=== PATIENT | female | born 1940 | race Caucasian/White ===

== ENCOUNTER → 2025-01-23 | Outpatient (CLI) | payer MEDICARE, BC, SELFPAY ==
[2025-01-23 11:07] LABS: Glucose Estimated Average 143 mg/dL (80-131); Hemoglobin A1C 6.6 % Hgb (4.8-6.0)
[2025-01-23 11:21] LABS: Basophils # (Auto) 0.1 Thou/mm3 (0.0-0.2); Basophils % (Auto) 1 % (0-2.5); Eosinophils # (Auto) 0.2 Thou/mm3 (0.0-0.5); Eosinophils % (Auto) 1 % (0-10); Hematocrit 45.4 % (36.0-46.0); Hemoglobin 14.8 g/dL (12.0-16.0); Immature Granulocytes % (Auto) 0 % (0-0); Immature Granulocytes Auto 0.04 Thou/mm3 (0.00-0.00); Lymphocytes # (Auto) 15.5 Thou/mm3 (1.0-4.8); Lymphocytes % (Auto) 70 % (10-50); Mean Corpuscular HGB Conc 32.6 g/dl (31.0-37.0); Mean Corpuscular Volume 95 fL (80-100); Monocytes # (Auto) 0.7 Thou/mm3 (0.0-0.8); Monocytes % (Auto) 3 % (0-12); Neutrophils # (Auto) 5.7 Thou/mm3 (1.8-7.7); Neutrophils % (Auto) 26 % (37-80); Nucleated Red Blood Cell % 0 /100 WBC (0); Platelet Count 233 Thou/mm3 (140-440); RDW Standard Deviation 46.2 fL (36.4-46.3); Red Blood Count 4.77 Miln/mm3 (4.00-5.20); White Blood Count 22.2 Thou/mm3 (3.6-11.0)
[2025-01-23 11:42] LABS: Alanine Aminotransferase 12 U/L (10-49); Albumin, Serum 4.1 gm/dL (3.4-4.8); Alkaline Phosphatase 85 U/L (46-116); Anion Gap 9 (7-16); Aspartate Amino Transferase 17 U/L (0-34); BUN/Creatinine Ratio 19 Ratio (12-20); Bilirubin,Total 0.9 mg/dL (0.3-1.2); Blood Urea Nitrogen 17 mg/dL (9-23); Calcium 9.1 mg/dL (8.3-10.6); Calcium (Corrected) 9.1 mg/dL (8.5-10.1); Carbon Dioxide 32.8 mMol/L (20.0-31.0); Chloride 101 mMol/L (98-107); Cholesterol 149 mg/dL (132-200); Creatinine (Component) 0.9 mg/dL (0.6-1.3); Globulin 2.1 gm/dL (2.3-3.5); Glucose 187 mg/dL (74-106); HDL Cholesterol 49 mg/dL (40-60); LDL Cholesterol,Calculated 73 mg/dL (0-130); Osmolality,Calculated 291 (275-295); Potassium 3.3 mMol/L (3.4-5.1); Sodium 143 mMol/L (136-145); Thyroid Stimulating Hormone 0.38 uIU/mL (0.55-4.78); Total Protein 6.2 gm/dL (5.7-8.2); Triglycerides 136 mg/dL (30-150); eGFR > 60 See Note
[2025-01-23 14:00] LABS: Collection Type, Urine Clean Catch
[2025-01-23 15:04] LABS: Bacteria,Urine 1+; Bilirubin,Urine Negative (Negative); Blood,Urine Negative (Negative); Clarity,Urine Turbid (Clear/Hazy); Color,Urine Yellow (Lt Yel-Yel); Glucose, Urine Negative (Negative); Ketones,Urine Negative (Negative); Leukocyte Esterase,Urine Positive (Negative); Nitrite,Urine Negative (Negative); Protein,Urine 1+ (Neg - Trace); RBC,Urine 3 /hpf (0-3); Specific Gravity,Urine 1.026 (1.001-1.035); Squamous Epithelial Cell,Urine 23 /hpf (0-5); Urobilinogen,Urine Negative mg/dL (0.0-1.0); WBC,Urine 27 /hpf (0-5)
[2025-01-23 15:10] LABS: Creatinine MALB Rnd Ur 177 mg/dL (30-125); Microalbumin Creat Ratio 13 mg/gCrea (<30); Microalbumin, Random Urine 23 mg/L (0-300)
== END | disposition home or self-care (01) ==
LOC: COPL 09:34
PROVIDERS: PCP Internal Medicine; Referring Provider Internal Medicine Cardiovascular Disease; Visit Provider Internal Medicine Cardiovascular Disease
DX: E78.5 Hyperlipidemia, unspecified (principal); I10 Essential (primary) hypertension; E11.9 Type 2 diabetes mellitus without complications; E03.9 Hypothyroidism, unspecified
CPT/HCPCS: 36415; 80053; 80061; 81001; 82043; 82570; 83036; 84443; 85025

== ENCOUNTER → 2025-04-04 | Outpatient (BNVA) | payer MEDICARE, BC, SELFPAY | END | disposition home or self-care (01) | PROVIDERS: PCP Internal Medicine; Referring Provider Internal Medicine; Visit Provider Urology | DX: R35.0 Frequency of micturition (principal); Z87.440 Personal history of urinary (tract) infections; E11.9 Type 2 diabetes mellitus without complications; F32.9 Major depressive disorder, single episode, unspecified; I10 Essential (primary) hypertension; E03.9 Hypothyroidism, unspecified; E78.5 Hyperlipidemia, unspecified; C91.12 Chronic lymphocytic leukemia of B-cell type in relapse; K21.9 Gastro-esophageal reflux disease without esophagitis | CPT/HCPCS: 51701; 81003; 99203; 99212; G0463 ==

== ENCOUNTER 2025-05-12 16:19 | Emergency (ER) | payer MEDICARE, BC, SELFPAY ==
[2025-05-12] VITALS (8 sets, daily range): BP systolic 151–192; BP diastolic 63–85; PULSE 59–68; RESP 14–18; TEMP 36.4; O2SAT 92–98; BMI 34.3
--- NOTE | 2025-05-12 16:27 | EKG_ITS ---
[facility] Test Date: 2025-05-12 Pat Name: SHAYY KWON Department: Room: - Gender: Female [employer]: : 1940 Requested By: ED Temporary Provider Order Number: [id number] Reading MD: ED Temporary Provider Measurements Intervals [place] Rate: 63 P: 75 ID: [id number] QRS: 12 QRSD: 89 T: 8 QT: 440 QTc: 452 Interpretive Statements SINUS RHYTHM WITH OCCASIONAL VENTRICULAR PREMATURE COMPLEXES POSSIBLE ANTERIOR MYOCARDIAL INFARCTION , OF INDETERMINATE AGE [30 ms Q WAVE IN V3/V4, OR R < 0.2 mV IN V4] Compared to ECG 08/27/2023 07:31:09 Ventricular premature complex(es) now present Myocardial infarct finding now present /store/S0/[id number].pdf
--- NOTE | 2025-05-12 17:38 | PD.EDSOB ---
ED SOB =RME/HPI General Chief Complaint: Chest Pain Stated Complaint: CHEST PAIN Time Seen by Provider: 05/12/25 18:01 Arrival date/time: 05/12/25 16:19 Limitations: no limitations RME / HPI RME / HPI Narrative: 84 year old female with history of hypertension, diabetes, hypothyroidism, CLL presents to the ED BIBA from home for evaluation of shortness of breath today. Per , patient had stated feeling someone was sitting on her chest accompanied by feeling very faint. states he sat the patient down on a chair and shortly after began to complain of headache, neck pain, right sided chest pain and right upper abdominal pain. While in the ED, described the pain as soreness in sensation rating as moderate. Denies fevers, chills, sweats, cough, vomiting, diarrhea, constipation, or urinary symptoms. Related Data Home Medications ?Medication ?Instructions ?Recorded ?Confirmed atenolol 50 mg tablet 100 mg PO BID 02/11/18 04/04/25 omeprazole 40 mg capsule,delayed 40 mg PO QDAY 02/11/18 04/04/25 release atorvastatin 10 mg tablet 10 mg PO HS 07/22/21 04/04/25 glipizide 5 mg tablet 1 tab PO DAILY 05/27/22 04/04/25 amlodipine 5 mg tablet 5 mg PO BID 03/07/23 04/04/25 levothyroxine 75 mcg tablet 75 mcg PO QDAY 03/07/23 04/04/25 memantine 10 mg tablet 10 mg PO QDAY 03/07/23 04/04/25 sertraline 50 mg tablet 50 mg PO DAILY 03/07/23 04/04/25 desvenlafaxine 100 mg 100 mg PO QDAY 03/28/23 04/04/25 tablet,extended release 24 hr ascorbic acid (vitamin C) 25 mg mg PO DAILY 07/25/23 04/04/25 tablet terconazole 0.4 % vaginal cream 1 appful vaginal QHS 04/04/25 04/04/25 Allergies Allergy/AdvReac Type Severity Reaction Status Date / Time morphine Allergy Severe Hallucinati Verified 04/04/25 09:47 ng hydrochlorothiazide Allergy Unknown THYROID Verified 04/04/25 09:47 SWELLING meperidine Allergy Unknown HALLUCINATI Verified 04/04/25 09:47 ONS triamterene Allergy Unknown THYROID Verified 04/04/25 09:47 SWELLING Review of Systems Review of Systems Systems Reviewed: All systems reviewed, normal except as documented Past Medical History Past Medical History CARDIAC: Positive Cardiac Disorders and Hypertension RESPIRATORY: Positive Asthma, Bronchitis and Pneumonia GASTROINTESTINAL: Positive Gastrointestinal Disorders, Gastroesophageal Reflux Disease and Obesity REPRODUCTIVE: Positive Previous Pregnancies MUSCULOSKELETAL: Positive Musculoskeletal Disorders, Arthritis, Carpal Tunnel Syndrome and Fractures ENT: Positive Cataracts ENDOCRINE: Positive Endocrine Disorders, Diabetes Mellitus Type 2 and Hypothyroidism HEMATOLOGIC: Positive Leukemia PSYCHO/SOCIAL: Positive Depression and Anxiety OTHER HISTORY: Positive Chicken Pox, Measles and Mumps Family History FAMILY HISTORY: Positive Family Cancer; Negative Family Psychiatric Problems, Family Respiratory Disorders, Family Cardiac Disorders, Family Gastrointestinal Problems, Family Surgery or Family Anesthesia Reaction Surgical History SURGICAL: Positive Eye Surgery, Tonsillectomy, Adenoidectomy, Abdominal Surgery, Bowel Surgery, Joint Replacement and Hysterectomy; Negative Cardiac Surgery, Open Heart Surgery, Coronary Artery Bypass Graft, Valve Replacement, Vascular Surgery, Coronary Stent, Cardiac Catheterization, Pacemaker, Angiogram, Auto Implanted Cardiovert Defib, Carotid Endarterectomy, Endocrine Surgery, Thyroidectomy, Ear Surgery, Tympanostomy Tube, Nose Surgery, Oral Surgery, Corneal Transplant, Throat Surgery, Tracheostomy, Gastrostomy, Nephrectomy, Transurethral Resection, Amputation, Open Reduction Internal Fixation, Arthroscopy, Neurologic Surgery, Brain Shunt, Mastectomy, Lumpectomy, Tubal Ligation or Section Social History SMOKING STATUS: Never smoker SECOND HAND EXPOSURE: No SUBSTANCE USE: does not use ED Exam General Limitations: Present no limitations General appearance: Present alert and in no apparent distress Head Head exam: Present atraumatic, normocephalic and normal inspection Eye Eye exam: Present normal appearance, PERRL and EOMI ENT ENT exam: Present normal exam, normal oropharynx and mucous membranes moist Neck Neck exam: Present normal inspection, full ROM and trachea midline Chest Chest inspection: Present normal inspection and symmetric chest wall rise Respiratory Respiratory exam: Present normal lung sounds bilaterally Cardiovascular Cardiovascular exam: Present regular rate, normal rhythm and normal heart sounds Abdominal Exam Abdominal exam: Present soft, tenderness (RUQ and epigastric regions) and normal bowel sounds Extremities Exam Extremities exam: Present normal inspection and full ROM Back Exam Back exam: Present normal inspection and full ROM Neurological Exam Neurological exam: Present alert, oriented X3 and CN II-XII intact Psychiatric Psychiatric exam: Present normal affect and normal mood Skin Skin exam: Present warm, dry, intact and normal color Course Quality Measures none Orders Category Date Time Status CT Screening NOW Care 05/12/25 17:48 Active EKG (ED ONLY) *Do not use* NOW Care 05/12/25 16:[address] abdomen pelvis w con Stat Exams 05/12/25 17:47 Ordered CXRP [XR chest 1V portable] Stat Exams 05/12/25 17:47 Ordered EKG (ED Only) Stat Exams 05/12/25 16:27 Ordered EKG (ED Only) Urgent Exams 05/12/25 16:27 Draft US abdomen limited Stat Exams 05/12/25 17:47 Ordered BNP [B-Type Natriuretic Peptide] Stat Lab 05/12/25 17:50 Completed CBC [CBC] Stat Lab 05/12/25 17:50 Completed CMP [Comprehensive Metabolic Panel] Stat Lab 05/12/25 17:50 Completed Lipase Stat Lab 05/12/25 17:50 Completed Path Review Blood Smear Stat Lab 05/12/25 17:50 Completed Troponin I Stat Lab 05/12/25 17:50 Completed UA, C/S IF [Urinalysis, C/S if Indicated] Stat Lab 05/12/25 17:54 Completed Ondansetron Inj [Zofran Inj] Med 05/12/25 17:47 Active 4 mg IVP Q6H PRN fentaNYL INJ [Sublimaze Inj] Med 05/12/25 17:47 Discontinued 100 mcg IVP X1 ONE Vital Signs Vital signs: Vital Signs Temperature 97.6 F 05/12/25 18:23 Pulse Rate 63 05/12/25 18:23 Respiratory Rate 18 05/12/25 18:23 Blood Pressure 155/85 H 05/12/25 18:23 Pulse Oximetry (%) 96 05/12/25 18:23 Oxygen Delivery Method Room Air 05/12/25 18:23 Pulse ox is 96% on room air which is adequate. Shortness of Breath / Dyspnea MDM Narrative MDM Narrative:: Laureen Crump am scribing for and in the presence of Dr. Butt. Assessment: Abdominal pain, with localized epigastric discomfort, most likely due to CBD stone, r/o acute coronary syndrome due to possible atypical presentation. Plan: CT abdomen and pelvis, US abdomen,cardiac workup, labs, pain management and MRCP if indicated based on initial imaging results and labs. 1800: Patient signed out to Dr. Ruffin pending labs and imaging. Patient data External records reviewed:: [facility] previous records (I reviewed ED visit on 03/24/2024 ) and EMS form Clinical information provided by:: patient and EMS Social determinants that could affect healthcare access:: none Patient has the following chronic illnesses:: hypertension, diabetes, hypothyroidism, CLL How is presenting disease/condition affected by chronic disease/condition?: exacerbated by Evaluation data The following diagnostics were reviewed and interpreted by me:: lab results and EKG tracing(s) (05/12/2025 NSR, rate 64, normal QT, no ischemia, no axis deviation ) Lab and/or radiology exams considered but not ordered:: None Interpretation Summary: As noted above Medications / Prescriptions Medications or Prescriptions considered but not ordered:: None Medication administrations:: Medication Administration History Ondansetron HCl (Ondansetron Inj 2 Mg/Ml Inj 2 Ml) 4 mg IVP Q6H PRN; Protocol PRN Reason: NAUSEA OR VOMITING Stop: 06/11/25 17:46 Last Admin: 05/12/25 18:09 Dose: 4 mg Documented By: JOSE Discontinued Medications Fentanyl Citrate (Fentanyl Cit Inj 50 Mcg/Ml Amp 2ml) 100 mcg IVP X1 ONE Stop: 05/12/25 17:48 Last Admin: 05/12/25 18:12 Dose: 100 mcg Documented By: JOSE See above Consultations Consultation(s) initiated? (list below): No Diagnosis Shortness of Breath Differential Diagnosis: acute exacerbation of chronic obstructive airways disease, congestive heart failure, community acquired pneumonia and other (Cholelithiasis, CBD stone, cholecystitis ) Most likely diagnosis given after review of the tests above:: Abdominal pain Admission Indicated Admission indicated?: not indicated Explain why admission is indicated or not indicated:: Signed out to Dr. Ruffin pending final disposition Admission Request Was there a request for admission?: No Disposition Plan Disposition Plan: other (specify) (Signed out to Dr. Ruffin) Discharge Plan Prescriptions/Referrals Prescriptions/Med Rec: No Action desvenlafaxine 100 mg tablet extended release 24 hr 100 mg PO QDAY terconazole 0.4 % cream 1 appful vaginal QHS atorvastatin 10 mg tablet 10 mg PO HS Patient Comments: TAKE 1 TABLET BY MOUTH EVERYDAY AT BEDTIME omeprazole 40 mg Capsule,Delayed Release(Dr/Ec) 40 mg PO QDAY atenolol 50 mg Tablet 100 mg PO BID Rx Instructions: TAKE 2 TABS DAILY glipizide 5 mg tablet 1 tab PO DAILY Patient Comments: TAKE 1 TABLET BY MOUTH TWICE A DAY sertraline 50 mg tablet 50 mg PO DAILY amlodipine 5 mg tablet 5 mg PO BID levothyroxine 75 mcg tablet 75 mcg PO QDAY Patient Comments: TAKE 1 TABLET BY MOUTH EVERY DAY memantine 10 mg tablet 10 mg PO QDAY Patient Comments: TAKE 1 TABLET BY MOUTH EVERY DAY ascorbic acid (vitamin C) 25 mg Tablet PO DAILY Referrals: No Primary/Family,Physician [Primary Care Provider] - In 1 week Patient/Caregiver Discharge Instructions Print Language: [place] Citizen
--- NOTE | 2025-05-12 17:47 | XR_ITS ---
Examination: CT abdomen with intravenous contrast CT pelvis with intravenous contrast 2-D coronal reconstructions 2-D sagittal reconstructions Date and time of exam:May 12, 2025 at 1957 hours Comparison March 06, 2023 INDICATIONS: Epigastric pain abdominal pain this week, enlarged common bile duct 11 mm on hepatic sonogram today. CTDI: vol (mGy) 14 DLP: (mGycm) 738 Technique: Multiple axial sections of the abdomen and pelvis have been obtained. 64 slice high-resolution scanner used. 3 mm axial sections have been obtained, post intravenous injection of 60 cc Isovue 370 2-D sagittal, coronal reconstructions obtained. Low dose protocols were performed. One or more of the following dose reduction techniques were used; automated exposure control, adjustment of the mA and/or KV according to patient size, use of iterative reconstruction technique. Findings: Pneumobilia Absent gallbladder Common hepatic duct 26 mm, common bile duct 15 mm No definite stones No pancreatitis 14 mm low-density mass lateral margin left kidney Perinephric stranding Aorta normal size No bowel obstruction Colonic diverticulosis, no diverticulitis Intact urinary bladder Absent uterus Prominent osteopenia IMPRESSION: Significant extrahepatic biliary tract dilatation MRCP follow-up would be preferable in excluding common bile duct stones
--- NOTE | 2025-05-12 17:47 | XR_ITS ---
Examination: AP chest single view Technique one AP portable sitting chest single view Date and time: May 12, 2025 1857 hours INDICATIONS: Chest pain today FINDINGS: No significant cardiac enlargement. No pneumonia or pulmonary edema. Prominent osteopenia. IMPRESSION: No pneumonia or pulmonary edema
--- NOTE | 2025-05-12 17:47 | XR_ITS ---
Examination: Abdomen sonogram, Limited Date and time of exam: May 12, 2025 1823 hours INDICATIONS: Right upper abdominal pain nausea vomiting beginning several months ago Technique: Real-time cheatham scale transabdominal sonographic images of the upper abdomen obtained. Findings: Absent gallbladder Common bile duct enlarged 11 mm No definite common bile duct stones Pancreas obscured by bowel gas Liver 14.6 cm no liver lesions Normal hepatopedal portal venous and Patent IVC IMPRESSION: Enlarged common bile duct 11 mm although no definite stones If biliary colic is a clinical consideration, recommend MRCP follow-up
[2025-05-12 17:59] LABS: Collection Type, Urine Clean Catch
[2025-05-12 18:02] LABS: Basophils # (Auto) 0.1 Thou/mm3 (0.0-0.2); Basophils % (Auto) 0 % (0-2.5); Eosinophils # (Auto) 0.1 Thou/mm3 (0.0-0.5); Eosinophils % (Auto) 1 % (0-10); Hematocrit 42.5 % (36.0-46.0); Hemoglobin 14.5 g/dL (12.0-16.0); Immature Granulocytes % (Auto) 0 % (0-0); Immature Granulocytes Auto 0.06 Thou/mm3 (0.00-0.00); Lymphocytes # (Auto) 18.3 Thou/mm3 (1.0-4.8); Lymphocytes % (Auto) 76 % (10-50); Mean Corpuscular HGB Conc 34.1 g/dl (31.0-37.0); Mean Corpuscular Hemoglobin 31.5 pg (25.0-35.0); Mean Corpuscular Volume 92 fL (80-100); Monocytes # (Auto) 0.6 Thou/mm3 (0.0-0.8); Monocytes % (Auto) 3 % (0-12); Neutrophils # (Auto) 5.1 Thou/mm3 (1.8-7.7); Neutrophils % (Auto) 21 % (37-80); Nucleated Red Blood Cell # 0.02 Thou/mm3 (0.00-0.00); Nucleated Red Blood Cell % 0 /100 WBC (0); Platelet Count 237 Thou/mm3 (140-440); RDW Standard Deviation 44.8 fL (36.4-46.3); White Blood Count 24.3 Thou/mm3 (3.6-11.0)
[2025-05-12 18:07] LABS: Path Review Blood Smear Sent to Pathologist
[2025-05-12] MEDS: ONDANSETRON INJ 2 MG/ML INJ 2 ML 4 MG IVP (18:09)
[2025-05-12] MEDS: fentaNYL CIT INJ 50 mCg/ML AMP 2ML 100 MCG IVP (18:12)
--- NOTE | 2025-05-12 18:12 | EDNOTE_ITS ---
Emergency Room Addendum <Nuvia Arreola - Last Filed: 05/13/25 02:30> Addendum Narrative: 1800: Care assumed from Dr. Butt, the previous shift emergency physician. Past medical, surgical, social and family history reviewed. Vitals and home medications reviewed. Results and treatment plan discussed. I will assume the care of the patient at this time and will follow the patient, pending CT abdomen pelvis, US abdomen, CXR, and labs. Please refer to the emergency department record for history and examination from initial visit. 84yo female with a history of CLL (not on any treatment), HTN, early dementia, recurrent UTIs presents to the ED for a chief complaint of significant chest pain. Patient was having a bowel movement early today and started complaining of significant chest pain and shortness of breath after, describing it as having an elephant on my chest . Patient has had multiple stress tests in the past that were normal. PSH includes hysterectomy and cholecystectomy. WBC 24.3 (patient's baseline), Potassium 3.1 (repleted in the ED, UA shows positive leukocyte esterase, 19 WBCs, and rare bacteria concern for contamination. Repeat urinalysis without evidence of infection. Troponin normal on 2 separate evaluations. EKG without evidence of ischemia arrhythmia. CT angio unremarkable. This was ordered as patient had chest pain, and normal cardiac workup. CT abdomen pelvis with contrast with Pneumobilia, common hepatic duct 26 mm, bile duct 15 mm. No definite stones. There is also a 14 mm low-density mass in the lateral margin of the left kidney. There is also perinephric fat stranding. Patient has colonic diverticulosis no diverticul itis. Patient has osteopenia. Given findings ordered MRCP. However our hospital does not have MRCP capabilities overnight and our on-call steam meter reader does not perform ERCP. Given this we will consult outside hospital for transfer. Patient states she has a history of cholelithiasis and has been transferred to [facility] in the past for this. Requests to be transferred there if possible. 0021: Spoke with [facility]'s transfer center. Awaiting callback. 0146: Discussed case with LAZARA Alvarenga from [facility]. Discussed patients ED course, exam findings, labs, and radiology results. Accepts the patient for transfer. RADIOLOGY RESULTS: [facility] Report Signed Patient: SHAYY KWON Med. Record#: [id number] Birthdate: 1940 Age/Sex: 84 / F Location: [facility] Attending Dr: Ordering Physician: Lindy Hamilton MD Date of Service: 05/12/25 Procedure(s): XR chest 1V portable Accession Number(s): [id number] cc: Lindy Hamilton MD; Wood Jennings MD; NO PRIMARY/FAMILY,PHYSICIAN~ Examination: AP chest single view Technique one AP portable sitting chest single view Date and time: May 12, 2025 1857 hours INDICATIONS: Chest pain today FINDINGS: No significant cardiac enlargement. No pneumonia or pulmonary edema. Prominent osteopenia. IMPRESSION: No pneumonia or pulmonary edema Dictated By: Wood Jennings MD Signed By: <Electronically signed by Wood Jennings MD in OV> 05/12/251924 [facility] Report Signed Patient: SHAYY KWON [facility]. Record#: [id number] Birthdate: 1940 Age/Sex: 84 / F Location: [facility] Attending Dr: Ordering Physician: Lindy Hamilton MD Date of Service: 05/12/25 Procedure(s): US abdomen limited Accession Number(s): [id number] cc: Lindy Hamilton MD; Wood Jennings MD; NO PRIMARY/FAMILY,PHYSICIAN~ Examination: Abdomen sonogram, Limited Date and time of exam: May 12, 2025 1823 hours INDICATIONS: Right upper abdominal pain nausea vomiting beginning several months ago Technique: Real-time cheatham scale transabdominal sonographic images of the upper abdomen obtained. Findings: Absent gallbladder Common bile duct enlarged 11 mm No definite common bile duct stones Pancreas obscured by bowel gas Liver 14.6 cm no liver lesions Normal hepatopedal portal venous and Patent IVC IMPRESSION: Enlarged common bile duct 11 mm although no definite stones If biliary colic is a clinical consideration, recommend MRCP follow-up Dictated By: Wood Jennings MD Signed By: <Electronically signed by Wood Jennings MD in OV> 05/12/251920 [facility] Report Signed Patient: SHAYY KWON [facility]. Record#: [id number] Birthdate: 1940 Age/Sex: 84 / F Location: [facility] Attending Dr: Ordering Physician: Lindy Hamilton MD Date of Service: 05/12/25 Procedure(s): CT abdomen pelvis w con Accession Number(s): [id number] cc: Lindy Hamilton MD; Wood Jennings MD; NO PRIMARY/FAMILY,PHYSICIAN~ Examination: CT abdomen with intravenous contrast CT pelvis with intravenous contrast 2-D coronal reconstructions 2-D sagittal reconstructions Date and time of exam:May 12, 2025 at 1957 hours Comparison March 06, 2023 INDICATIONS: Epigastric pain abdominal pain this week, enlarged common bile duct 11 mm on hepatic sonogram today. CTDI: vol (mGy) 14 DLP: (mGycm) 738 Technique: Multiple axial sections of the abdomen and pelvis have been obtained. 64 slice high-resolution scanner used. 3 mm axial sections have been obtained, post intravenous injection of 60 cc Isovue 370 2-D sagittal, coronal reconstructions obtained. Low dose protocols were performed. One or more of the following dose reduction techniques were used; automated exposure control, adjustment of the mA and/or KV according to patient size, use of iterative reconstruction technique. Findings: Pneumobilia Absent gallbladder Common hepatic duct 26 mm, common bile duct 15 mm No definite stones No pancreatitis 14 mm low-density mass lateral margin left kidney Perinephric stranding Aorta normal size No bowel obstruction Colonic diverticulosis, no diverticulitis Intact urinary bladder Absent uterus Prominent osteopenia IMPRESSION: Significant extrahepatic biliary tract dilatation MRCP follow-up would be preferable in excluding common bile duct stones Dictated By: Wood Jennings MD Signed By: <Electronically signed by Wood Jennings MD in OV> 05/12/252147 [facility] Report Signed Patient: SHAYY KWON [facility]. Record#: [id number] Birthdate: 1940 Age/Sex: 84 / F Location: [facility] Attending Dr: Ordering Physician: Darya Ruffin MD Date of Service: 05/12/25 Procedure(s): CT angio chest Accession Number(s): [id number] cc: Wood Jennings MD; NO PRIMARY/FAMILY,PHYSICIAN; Darya Ruffin MD~ Examination: CTA chest with intravenous contrast 2-D reconstructions 3-D reconstructions, vascular Date and time of exam: May 12, 2025, at 9:27 PM INDICATIONS: Chest pain shortness of breath today, clinical diagnosis pulmonary embolus CTDI: vol (mGy) 11.3 DLP: (mGycm) 432 Technique: Multiple axial sections of the thorax have been obtained. 3 mm slice thickness, from below the hemidiaphragms to above the apices of the lungs. Mediastinal and lung density settings have been obtained. 2-D sagittal and coronal reconstructions. 3-D angiographic renderings, 3-D volume renderings, 3D post processing, vascular maximum intensity projections obtained. Contrast administered is 100 cc Isovue-370. Low dose protocols were performed. One or more of the following dose reduction techniques were used; automated exposure control, adjustment of the mA and/or KV according to patient size, use of iterative reconstruction technique. Findings: No thoracic aortic aneurysm dilatation or dissection No pulmonary artery filling defects Mild enlargement cardiac contour No pneumonia pulmonary edema or pleural disease Please see the abdomen and pelvis report IMPRESSION: Negative for pulmonary artery emboli No pneumonia pulmonary edema or pleural disease Dictated By: Wood Jennings MD Signed By: <Electronically signed by Wodo Jennings MD in OV> 05/12/25 2200 Critical Care Time: 35 minutes The high probability of sudden, clinically significant deterioration in the patient?s condition required the highest level of my preparedness to intervene urgently. The services I provided to this patient were to treat and/or prevent clinically significant deterioration. Services included the following: chart data review, reviewing nursing notes and/or old charts, documentation time, software security consultant collaboration regarding findings and treatment options, medication orders and management, direct patient care, vital sign assessments and ordering, interpreting and reviewing diagnostic studies and lab tests. Aggregate critical care time includes only time during which I was engaged in work directly related to the patient?s care, as described above, whether at bedside or elsewhere in the Emergency Department. It did not include time spent performing other reported procedures or the services of residents, students, nurses or physician assistants. <Darya Ruffin MD - Last Filed: 05/13/25 02:48> Addendum Narrative: 1800: Care assumed from Dr. Butt, the previous shift emergency physician. Past medical, surgical, social and family history reviewed. Vitals and home medications reviewed. Results and treatment plan discussed. I will assume the care of the patient at this time and will follow the patient, pending CT abdomen pelvis, US abdomen, CXR, and labs. Please refer to the emergency department record for history and examination from initial visit. 84yo female with a history of CLL (not on any treatment), HTN, early dementia, recurrent UTIs presents to the ED for a chief complaint of significant chest pain. Patient was having a bowel movement early today and started complaining of significant chest pain and shortness of breath after, describing it as having an elephant on my chest . Patient has had multiple stress tests in the past that were normal. PSH includes hysterectomy and cholecystectomy. WBC 24.3 (patient's baseline), Potassium 3.1 (repleted in the ED, UA shows positive leukocyte esterase, 19 WBCs, and rare bacteria concern for contamination. Repeat urinalysis without evidence of infection. Troponin normal on 2 separate evaluations. EKG without evidence of ischemia arrhythmia. CT angio unremarkable. This was ordered as patient had chest pain, and normal cardiac workup. CT abdomen pelvis with contrast with Pneumobilia, common hepatic duct 26 mm, bile duct 15 mm. No definite stones. There is also a 14 mm low-density mass in the lateral margin of the left kidney. There is also perinephric fat stranding. Patient has colonic diverticulosis no diverticulitis. Patient has osteopenia. Given findings ordered MRCP. However our hospital does not have MRCP capabilities overnight and our on-call steam meter reader does not perform ERCP. Given this we will consult outside hospital for transfer. Patient states she has a history of cholelithiasis and has been transferred to [facility] in the past for this. Requests to be transferred there if possible. Patient's choledocholithiasis occurred many years after her cholecystectomy. 0021: Spoke with [facility]'s transfer center. Awaiting callback. 0146: Discussed case with Dr. Rubin GI from [facility]. Discussed patients ED course, exam findings, labs, and radiology results. Accepts the patient for transfer. Updated patient's family at bedside, patient and family in agreement with transfer to [facility] RADIOLOGY RESULTS: [facility] Report Signed Patient: SHAYY KWON Record#: [id number] Birthdate: 1940 Age/Sex: 84 / F Location: [facility] Attending Dr: Ordering Physician: Lindy Hamilton MD Date of Service: 05/12/25 Procedure(s): XR chest 1V portable Accession Number(s): [id number] cc: Lindy Hamilton MD; Wood Jennings MD; NO PRIMARY/FAMILY,PHYSICIAN~ Examination: AP chest single view Technique one AP portable sitting chest single view Date and time: May 12, 2025 1857 hours INDICATIONS: Chest pain today FINDINGS: No significant cardiac enlargement. No pneumonia or pulmonary edema. Prominent osteopenia. IMPRESSION: No pneumonia or pulmonary edema Dictated By: Wood Jennings MD Signed By: <Electronically signed by Wood Jennings MD in OV> 05/12/251924 [facility] Report Signed Patient: SHAYY KWON [facility]. Record#: [id number] Birthdate: 1940 Age/Sex: 84 / F Location: [facility] Attending Dr: Ordering Physician: Lindy Hamilton MD Date of Service: 05/12/25 Procedure(s): US abdomen limited Accession Number(s): [id number] cc: Lindy Hamilton MD; Wood Jennings MD; NO PRIMARY/FAMILY,PHYSICIAN~ Examination: Abdomen sonogram, Limited Date and time of exam: May 12, 2025 1823 hours INDICATIONS: Right upper abdominal pain nausea vomiting beginning several months ago Technique: Real-time cheatham scale transabdominal sonographic images of the upper abdomen obtained. Findings: Absent gallbladder Common bile duct enlarged 11 mm No definite common bile duct stones Pancreas obscured by bowel gas Liver 14.6 cm no liver lesions Normal hepatopedal portal venous and Patent IVC IMPRESSION: Enlarged common bile duct 11 mm although no definite stones If biliary colic is a clinical consideration, recommend MRCP follow-up Dictated By: Wood Jennings MD Signed By: <Electronically signed by Wood Jennings MD in OV> 05/12/251920 [facility] Report Signed Patient: SHAYY KWON. Record#: [id number] Birthdate: 1940 Age/Sex: 84 / F [facility] Dr: Ordering Physician: Lindy Hamilton MD Date of Service: 05/12/25 Procedure(s): CT abdomen pelvis w con Accession Number(s): [id number] cc: Lindy Hamilton MD; Wood Jennings MD; NO PRIMARY/FAMILY,PHYSICIAN~ Examination: CT abdomen with intravenous contrast CT pelvis with intravenous contrast 2-D coronal reconstructions 2-D sagittal reconstructions Date and time of exam:May 12, 2025 at 1957 hours Comparison March 06, 2023 INDICATIONS: Epigastric pain abdominal pain this week, enlarged common bile duct 11 mm on hepatic sonogram today. CTDI: vol (mGy) 14 DLP: (mGycm) 738 Technique: Multiple axial sections of the abdomen and pelvis have been obtained. 64 slice high-resolution scanner used. 3 mm axial sections have been obtained, post intravenous injection of 60 cc Isovue 370 2-D sagittal, coronal reconstructions obtained. Low dose protocols were performed. One or more of the following dose reduction techniques were used; automated exposure control, adjustment of the mA and/or KV according to patient size, use of iterative reconstruction technique. Findings: Pneumobilia Absent gallbladder Common hepatic duct 26 mm, common bile duct 15 mm No definite stones No pancreatitis 14 mm low-density mass lateral margin left kidney Perinephric stranding Aorta normal size No bowel obstruction Colonic diverticulosis, no diverticulitis Intact urinary bladder Absent uterus Prominent osteopenia IMPRESSION: Significant extrahepatic biliary tract dilatation MRCP follow-up would be preferable in excluding common bile duct stones Dictated By: Wood Jennings MD Signed By: <Electronically signed by Wood Jennings MD in OV> 05/12/252147 [facility] Report Signed Patient: SHAYY KWON [facility] Record#: [id number] Birthdate: 1940 Age/Sex: 84 / F Location: [facility] Attending Dr: Ordering Physician: Darya Ruffin MD Date of Service: 05/12/25 Procedure(s): CT angio chest Accession Number(s): [id number] cc: Wood Jennings MD; NO PRIMARY/FAMILY,PHYSICIAN; Darya Ruffin MD~ Examination: CTA chest with intravenous contrast 2-D reconstructions 3-D reconstructions, vascular Date and time of exam: May 12, 2025, at 9:27 PM INDICATIONS: Chest pain shortness of breath today, clinical diagnosis pulmonary embolus CTDI: vol (mGy) 11.3 DLP: (mGycm) 432 Technique: Multiple axial sections of the thorax have been obtained. 3 mm slice thickness, from below the hemidiaphragms to above the apices of the lungs. Mediastinal and lung density settings have been obtained. 2-D sagittal and coronal reconstructions. 3-D angiographic renderings, 3-D volume renderings, 3D post processing, vascular maximum intensity projections obtained. Contrast administered is 100 cc Isovue-370. Low dose protocols were performed. One or more of the following dose reduction techniques were used; automated exposure control, adjustment of the mA and/or KV according to patient size, use of iterative reconstruction technique. Findings: No thoracic aortic aneurysm dilatation or dissection No pulmonary artery filling defects Mild enlargement cardiac contour No pneumonia pulmonary edema or pleural disease Please see the abdomen and pelvis report IMPRESSION: Negative for pulmonary artery emboli No pneumonia pulmonary edema or pleural disease Dictated By: Wood Jennings MD Signed By: <Electronically signed by Wood Jennings MD in OV> 05/12/25 2200 Critical Care Time: 35 minutes The high probability of sudden, clinically significant deterioration in the patient?s condition required the highest level of my preparedness to intervene urgently. The services I provided to this patient were to treat and/or prevent clinically significant deterioration. Services included the following: chart data review, reviewing nursing notes and/or old charts, documentation time, software security consultant collaboration regarding findings and treatment options, medication orders and management, direct patient care, vital sign assessments and ordering, interpreting and reviewing diagnostic studies and lab tests. Aggregate critical care time includes only time during which I was engaged in work directly related to the patient?s care, as described above, whether at bedside or elsewhere in the Emergency Department. It did not include time spent performing other reported procedures or the services of residents, students, nurses or physician assistants.
[2025-05-12 18:14] LABS: Bacteria,Urine Rare; Bilirubin,Urine Negative (Negative); Blood,Urine Negative (Negative); Clarity,Urine Clear (Clear/Hazy); Color,Urine Lt-Yellow (Lt Yel-Yel); Culture Indicated,Urine Contaminated; Glucose, Urine Negative (Negative); Ketones,Urine Negative (Negative); Leukocyte Esterase,Urine Positive (Negative); Nitrite,Urine Negative (Negative); PH,Urine 6.5 (5.0-7.0); Protein,Urine Negative (Neg - Trace); RBC,Urine 3 /hpf (0-3); Specific Gravity,Urine 1.015 (1.001-1.035); Squamous Epithelial Cell,Urine 12 /hpf (0-5); Urobilinogen,Urine Negative mg/dL (0.0-1.0); WBC,Urine 19 /hpf (0-5)
[2025-05-12 18:19] LABS: Alanine Aminotransferase 21 U/L (10-49); Albumin, Serum 4.2 gm/dL (3.4-4.8); Albumin/Globulin Ratio 2.2 (1.2-2.2); Alkaline Phosphatase 75 U/L (46-116); Anion Gap 12 (7-16); Aspartate Amino Transferase 49 U/L (0-34); BUN/Creatinine Ratio 13 Ratio (12-20); Blood Urea Nitrogen 12 mg/dL (9-23); Chloride 103 mMol/L (98-107); Creatinine (Component) 0.9 mg/dL (0.6-1.3); Estimated Creatinine Clearance 51.7 mL/min (>60); Globulin 1.9 gm/dL (2.3-3.5); Glucose 190 mg/dL (74-106); Lipase 38 U/L (12-53); Osmolality,Calculated 285 (275-295); Potassium 3.1 mMol/L (3.4-5.1); Sodium 141 mMol/L (136-145); Total Protein 6.1 gm/dL (5.7-8.2); Troponin I < 0.020 ng/mL (0.0-0.045); eGFR > 60 See Note
[2025-05-12 18:20] LABS: B-Type Natriuretic Peptide 113 pg/mL (0-100)
--- NOTE | 2025-05-12 20:26 | XR_ITS ---
Examination: CTA chest with intravenous contrast 2-D reconstructions 3-D reconstructions, vascular Date and time of exam: May 12, 2025, at 9:27 PM INDICATIONS: Chest pain shortness of breath today, clinical diagnosis pulmonary embolus CTDI: vol (mGy) 11.3 DLP: (mGycm) 432 Technique: Multiple axial sections of the thorax have been obtained. 3 mm slice thickness, from below the hemidiaphragms to above the apices of the lungs. Mediastinal and lung density settings have been obtained. 2-D sagittal and coronal reconstructions. 3-D angiographic renderings, 3-D volume renderings, 3D post processing, vascular maximum intensity projections obtained. Contrast administered is 100 cc Isovue-370. Low dose protocols were performed. One or more of the following dose reduction techniques were used; automated exposure control, adjustment of the mA and/or KV according to patient size, use of iterative reconstruction technique. Findings: No thoracic aortic aneurysm dilatation or dissection No pulmonary artery filling defects Mild enlargement cardiac contour No pneumonia pulmonary edema or pleural disease Please see the abdomen and pelvis report IMPRESSION: Negative for pulmonary artery emboli No pneumonia pulmonary edema or pleural disease
[2025-05-12] MEDS: POTASSIUM CHLORIDE 20 mEq TABCR 40 MEQ PO (20:31)
[2025-05-12 20:43] LABS: Collection Type, Urine Catheter; Squamous Epithelial Cell,Urine 0 /hpf (0-5)
[2025-05-12 20:48] LABS: Bilirubin,Urine Negative (Negative); Blood,Urine Negative (Negative); Clarity,Urine Clear (Clear/Hazy); Color,Urine Colorless (Lt Yel-Yel); Culture Indicated,Urine Not Indicated; Glucose, Urine Negative (Negative); Ketones,Urine Negative (Negative); Leukocyte Esterase,Urine Negative (Negative); Nitrite,Urine Negative (Negative); Protein,Urine Negative (Neg - Trace); RBC,Urine 1 /hpf (0-3); Specific Gravity,Urine 1.034 (1.001-1.035); Urobilinogen,Urine Negative mg/dL (0.0-1.0); WBC,Urine < 1 /hpf (0-5)
[2025-05-12 21:28] LABS: Troponin I < 0.020 ng/mL (0.0-0.045)
--- NOTE | 2025-05-13 00:10 | PC.NURSE ---
[facility] CONTACTED FOR POSSIBLE TRANSFER DUE TO PT NEEDING ERCP DUE TO SEVERELY DILATED CDB. HEATH AT [facility] REQUESTED PACKET TO BE FAXED AND IMAGING HAS BEEN FORWARDED-
[2025-05-13 01:48] VITALS: BP 141/63; PULSE 67; RESP 18; TEMP 36.9; O2SAT 98
--- NOTE | 2025-05-13 02:01 | PC.NURSE ---
[facility]IVANI SHAVER ACCEPTS DR GORDILLO @[phone]
[2025-05-13 03:00] VITALS: BP 145/65; PULSE 65; RESP 18; TEMP 36.9; O2SAT 98
[2025-05-13 05:00] VITALS: BP 145/76; PULSE 64; RESP 18; TEMP 36.7; O2SAT 98
--- NOTE | 2025-05-13 05:23 | PC.NURSE ---
Reached out to [facility] regarding bed assignment, they stated their bed would be available after 0730 huddle. They are to reach back with bed number.
[2025-05-13 06:07] VITALS: BP 143/64; PULSE 69; RESP 18; TEMP 37.1; O2SAT 94
--- NOTE | 2025-05-13 07:36 | PC.NURSE ---
accepted Dr. Scottie HAILE, [facility] room 3122B EVA Monique [phone], pending transport eta
--- NOTE | 2025-05-13 07:41 | PC.CC ---
Addendum entered by Dennise Asencio RN 05/13/25 09:44: 0940: received call from transport dispatch, pickle solution maker time has been pushed back to 1030. Informed bedside nurse Katie. ED tracker updated. Addendum entered by Dennise Asencio RN 05/13/25 07:51: 0751: Transport set for 10 am pickup. Informed bedside EVA Wilson. Original Note: 0713: Received report for pending transfer. ED nurse received bed information, need to set up transport.
[2025-05-13 07:47] VITALS: BP 135/61; PULSE 60; RESP 12; O2SAT 95
--- NOTE | 2025-05-13 08:00 | PC.NURSE ---
This field underwriter at bedside updating patient spouse with plan of transfer to [facility] and eta of 1000 am transport time
[2025-05-13 10:01] VITALS: BP 123/58; PULSE 60; RESP 20; TEMP 37.2; O2SAT 96
--- NOTE | 2025-05-13 10:12 | PC.NURSE ---
Report given to mobility architect manager Miguel Angel, patient will transfer to [facility]
--- NOTE | 2025-05-13 10:23 | PC.NURSE ---
Report given to Hiwot Monique at [facility], eta given.
== END 2025-05-13 10:20 | disposition short-term general hospital (02) ==
PROVIDERS: Emergency Medicine; Emergency Provider Emergency Medicine
DX: K83.8 Other specified diseases of biliary tract (principal); R07.9 Chest pain, unspecified; K57.30 Diverticulosis of large intestine without perforation or abscess without bleeding; I25.2 Old myocardial infarction
CPT/HCPCS: 36415; 71045; 71275; 74177; 76705; 80053; 81001; 83690; 83880; 84484; 85025; 93005; 96374; 96375; 99291; A4649; J2405; J3010; Q9967; A9270

== ENCOUNTER → 2025-05-30 | Outpatient (BNVA) | payer MEDICARE, BC, SELFPAY | END | disposition home or self-care (01) | PROVIDERS: PCP Nurse Practitioner Primary Care; Referring Provider Nurse Practitioner Primary Care; Visit Provider Nurse Practitioner Primary Care | DX: Z00.00 Encounter for general adult medical examination without abnormal findings (principal); I10 Essential (primary) hypertension; E03.9 Hypothyroidism, unspecified; E78.00 Pure hypercholesterolemia, unspecified; E11.9 Type 2 diabetes mellitus without complications; F32.A Depression, unspecified; F41.9 Anxiety disorder, unspecified; K21.9 Gastro-esophageal reflux disease without esophagitis; C91.10 Chronic lymphocytic leukemia of B-cell type not having achieved remission; R41.3 Other amnesia | CPT/HCPCS: 99203; 99205 ==

== ENCOUNTER → 2025-07-12 | Outpatient (BNVA) | payer MEDICARE, BC, SELFPAY | END | disposition home or self-care (01) | PROVIDERS: PCP Nurse Practitioner Primary Care; Referring Provider Nurse Practitioner Primary Care; Visit Provider Nurse Practitioner Primary Care | DX: Z00.00 Encounter for general adult medical examination without abnormal findings (principal); I10 Essential (primary) hypertension; E78.00 Pure hypercholesterolemia, unspecified; E03.9 Hypothyroidism, unspecified; E11.9 Type 2 diabetes mellitus without complications; F32.A Depression, unspecified; C91.10 Chronic lymphocytic leukemia of B-cell type not having achieved remission; R41.3 Other amnesia; R21 Rash and other nonspecific skin eruption | CPT/HCPCS: 99173; 99397; G0439 ==

== ENCOUNTER → 2025-07-17 | Outpatient (BNVA) | payer MEDICARE, BC, SELFPAY | END | disposition home or self-care (01) | PROVIDERS: PCP Nurse Practitioner Primary Care; Referring Provider Nurse Practitioner Primary Care; Visit Provider Nurse Practitioner Primary Care | DX: K21.9 Gastro-esophageal reflux disease without esophagitis (principal); I10 Essential (primary) hypertension; Z71.2 Person consulting for explanation of examination or test findings; E78.00 Pure hypercholesterolemia, unspecified; E11.9 Type 2 diabetes mellitus without complications; F32.A Depression, unspecified | CPT/HCPCS: 99214 ==

== ENCOUNTER → 2025-08-27 | Outpatient (BNVA) | payer MEDICARE, BC, SELFPAY | END | disposition home or self-care (01) | PROVIDERS: PCP Nurse Practitioner Primary Care; Referring Provider Nurse Practitioner Primary Care; Visit Provider Nurse Practitioner Primary Care | DX: G43.109 Migraine with aura, not intractable, without status migrainosus (principal); Z23 Encounter for immunization | CPT/HCPCS: 90471; 90472; 90677; 90686 ==

== ENCOUNTER → 2025-09-10 | Outpatient (CLI) | payer MEDICARE, BC, SELFPAY ==
--- NOTE | 2025-09-10 14:38 | XR_ITS ---
Examination: Abdomen AP single view Technique: AP portable supine abdomen, single view Exam date and time: September 10, 2025, 1511 hours INDICATIONS: Epigastric pain beginning 2 weeks ago FINDINGS: Moderate stool throughout the colon No obstruction No free air Healed right hip fracture with prominent osteopenia Moderate narrowing left hip joint IMPRESSION: Nonobstructive bowel gas pattern
[2025-09-10 16:32] LABS: Basophils # (Auto) 0.1 Thou/mm3 (0.0-0.2); Basophils % (Auto) 0 % (0-2.5); Eosinophils # (Auto) 0.1 Thou/mm3 (0.0-0.5); Eosinophils % (Auto) 1 % (0-10); Hematocrit 45.1 % (36.0-46.0); Hemoglobin 14.9 g/dL (12.0-16.0); Immature Granulocytes Auto 0.08 Thou/mm3 (0.00-0.00); Lymphocytes # (Auto) 18.8 Thou/mm3 (1.0-4.8); Lymphocytes % (Auto) 72 % (10-50); Mean Corpuscular HGB Conc 33.0 g/dl (31.0-37.0); Mean Corpuscular Hemoglobin 30.5 pg (25.0-35.0); Mean Corpuscular Volume 92 fL (80-100); Monocytes # (Auto) 1.0 Thou/mm3 (0.0-0.8); Monocytes % (Auto) 4 % (0-12); Neutrophils # (Auto) 6.0 Thou/mm3 (1.8-7.7); Neutrophils % (Auto) 23 % (37-80); Nucleated Red Blood Cell # 0.00 Thou/mm3 (0.00-0.00); Nucleated Red Blood Cell % 0 /100 WBC (0); Platelet Count 252 Thou/mm3 (140-440); RDW Standard Deviation 47.0 fL (36.4-46.3); Red Blood Count 4.88 Miln/mm3 (4.00-5.20); White Blood Count 26.1 Thou/mm3 (3.6-11.0)
[2025-09-10 17:00] LABS: Alanine Aminotransferase 11 U/L (10-49); Albumin, Serum 4.7 gm/dL (3.4-4.8); Albumin/Globulin Ratio 2.5 (1.2-2.2); Alkaline Phosphatase 84 U/L (46-116); Amylase 31 U/L (30-118); Anion Gap 14 (7-16); Aspartate Amino Transferase 20 U/L (0-34); BUN/Creatinine Ratio 14 Ratio (12-20); Bilirubin,Total 0.9 mg/dL (0.3-1.2); Blood Urea Nitrogen 13 mg/dL (9-23); Calcium 8.9 mg/dL (8.3-10.6); Calcium (Corrected) 8.9 mg/dL (8.5-10.1); Carbon Dioxide 26.3 mMol/L (20.0-31.0); Chloride 102 mMol/L (98-107); Creatinine (Component) 0.9 mg/dL (0.6-1.3); Globulin 1.9 gm/dL (2.3-3.5); Glucose 153 mg/dL (74-106); Lipase 37 U/L (12-53); Osmolality,Calculated 286 (275-295); Potassium 3.7 mMol/L (3.4-5.1); Sodium 142 mMol/L (136-145); Total Protein 6.6 gm/dL (5.7-8.2); eGFR > 60 See Note
== END | disposition home or self-care (01) ==
LOC: CDIM 14:31 → COPL 15:37
PROVIDERS: PCP Nurse Practitioner Family; Referring Provider Specialist; Visit Provider Radiology Diagnostic Radiology
DX: R10.13 Epigastric pain (principal); R14.0 Abdominal distension (gaseous)
CPT/HCPCS: 36415; 74018; 80053; 81001; 82150; 83690; 85025

== ENCOUNTER → 2025-09-11 | Outpatient (CLI) | payer MEDICARE, BC, SELFPAY ==
[2025-09-11 13:03] LABS: Collection Type, Urine Clean Catch
[2025-09-11 14:02] LABS: Bilirubin,Urine Negative (Negative); Blood,Urine Negative (Negative); Clarity,Urine Clear (Clear/Hazy); Color,Urine Lt-Yellow (Lt Yel-Yel); Glucose, Urine Negative (Negative); Ketones,Urine Negative (Negative); Leukocyte Esterase,Urine Positive (Negative); Nitrite,Urine Negative (Negative); PH,Urine 6.5 (5.0-7.0); Protein,Urine Negative (Neg - Trace); RBC,Urine 2 /hpf (0-3); Specific Gravity,Urine 1.011 (1.001-1.035); Squamous Epithelial Cell,Urine 3 /hpf (0-5); Urobilinogen,Urine Negative mg/dL (0.0-1.0); WBC,Urine 5 /hpf (0-5)
== END | disposition home or self-care (01) ==
LOC: SLDO 13:00
PROVIDERS: Referring Provider Specialist; Visit Provider Specialist
DX: R14.0 Abdominal distension (gaseous) (principal); R10.13 Epigastric pain
CPT/HCPCS: 81001